=== PATIENT | female | born 1965 | race Caucasian/White ===

== ENCOUNTER 2017-11-15 12:08 | Emergency (ER) | payer OTHER ==
[~2017-11-15] VITALS: Ht 157.5 cm; Wt 93.4 kg
[2017-11-15 12:47] LABS: APPEARANCE CLEAR ((CLEAR)); BILIRUBIN NEGATIVE; BLOOD NEGATIVE; COLOR COLORLESS ((YELLOW)); GLUCOSE (STRIP) NEGATIVE; KETONES NEGATIVE; LEUKOCYTES NEGATIVE; NITRITE NEGATIVE; PROTEIN (STRIP) NEGATIVE; SPECIFIC GRAVITY 1.004 (1.000-1.030); UCUL ADDED? NO; UROBILINOGEN 0.2 MG/DL (0.2-1.0)
[2017-11-15 13:00] LABS: HEMATOCRIT 38.3 % (36.0-46.0); HEMOGLOBIN 12.7 G/DL (11.9-15.5); MCH 29.3 PG (29.0-34.0); MCHC 33.2 G/DL (30.0-36.0); MCV 88.5 FL (83-99); PLATELET COUNT 316 K/uL (156-360); RBC DIS.WIDTH-CV 13.4 % (11.8-14.6); RED BLOOD COUNT 4.33 M/uL (3.80-5.20)
[2017-11-15 13:16] LABS: CHLORIDE 108 mEq/L (99-109); POTASSIUM 4.2 mEq/L (3.7-5.4); SODIUM 143 mEq/L (136-147)
[2017-11-15 13:17] LABS: GLUCOSE 88 mg/dL (70-99)
[2017-11-15 13:21] LABS: CREATININE 0.8 mg/dL (0.6-1.3); GFR ESTIMATE (CALCULATED) > 59 mL/min/
[2017-11-15 13:22] LABS: UREA NITROGEN (BUN) 16 mg/dL (9-23)
[2017-11-15 14:06] LABS: ALBUMIN 4.3 g/dL (3.2-4.8)
[2017-11-15 14:09] LABS: TOTAL PROTEIN 7.3 g/dL (6.4-8.3)
[2017-11-15 14:11] LABS: TOTAL BILIRUBIN 0.3 mg/dL (0.0-1.0)
[2017-11-15 14:12] LABS: ALKALINE PHOSPHATASE 58 IU/L (3-129)
[2017-11-15 14:14] LABS: AST (GOT) 23 IU/L (2-34); DIRECT BILIRUBIN 0.2 mg/dL (0.0-0.3)
[2017-11-15 14:15] LABS: ALT (GPT) 25 IU/L (3-49); LIPASE 34 U/L (1.0-51.0)
[2017-11-15 14:19] LABS: TROP-I INTERPRETATION NEGATIVE; TROPONIN-I < 0.01 ng/mL (0.0-0.30)
[2017-11-15] MEDS ORDERED: PERCOCET 5/31 TABLET PO (15:59)
[2017-11-15] MEDS ORDERED: VALACYCLOVIR1000 MG PO (15:59)
[2017-11-15] MEDS ORDERED: ULTRAM50 MG PO (15:59)
[2017-11-15 16:05] LABS: TROP-I INTERPRETATION NEGATIVE; TROPONIN-I < 0.01 ng/mL (0.0-0.30)
[2017-11-15 16:40] VITALS: BP 126/66
== END 2017-11-15 16:44 | disposition home or self-care (01) ==
LOC: EME 12:08
PROVIDERS: Emergency Medicine
DX: B02.9 Zoster without complications (principal); R07.9 Chest pain, unspecified; R10.11 Right upper quadrant pain; F41.9 Anxiety disorder, unspecified
CPT/HCPCS: 76705; 80048; 80076; 81003; 83690; 84484; 85027; 85379; 93005; 99281; 99284